=== PATIENT | female | born 1940 | race Caucasian/White ===

== ENCOUNTER → 2018-02-23 | Outpatient (CLI) | payer MEDICARE ==
[~2018-02-23] MED LIST: ACTOS; AMARYL; ASPIRIN; ASPIRIN81 M2 PO; BIOTIN1 M1 PO; CRESTOR40 MG PO; EYE DROPS OPHTHALMIC; GLUCOPHAGE1000 MG PO; HYDROCODON-ACE1 EAC7 PO; LOPRESSOR; PERCOCET 5-3251 EACH PO; PRINIVIL; SENNA-S TABLET1 EACH PO; TOPROL XL50 MG PO; TRAVATAN 0.004%5 ML OP; ZESTRIL2.5 MG PO; ZESTRIL40 MG PO; ZOFRAN ODT4 MG PO
== END ==
LOC: M.RAD 12:39
DX: Z12.31 Encounter for screening mammogram for malignant neoplasm of breast (principal); I10 Essential (primary) hypertension; E78.00 Pure hypercholesterolemia, unspecified; E11.9 Type 2 diabetes mellitus without complications

== ENCOUNTER 2018-04-11 15:02 | Observation (INO) | payer MEDICARE ==
[~2018-04-11] VITALS: Ht 162.6 cm; Wt 54.0 kg
[~2018-04-11 15:02] MED LIST changes: -BIOTIN1 M1 PO
[2018-04-11 15:08] VITALS: BP 105/61
[2018-04-11 15:23] LABS: ABSOLUTE BASOPHILS 0.2 thou/uL (0.0-0.2); ABSOLUTE EOSINOPHILS 0.1 thou/uL (0.0-0.7); ABSOLUTE LYMPHOCYTES 2.9 thou/uL (0.8-5.3); ABSOLUTE MONOCYTES 0.9 thou/uL (0.0-1.2); ABSOLUTE NEUTROPHILS 10.5 thou/uL (1.6-8.1); BASOPHILS 1.5 %; LYMPHOCYTES 19.6 %; MCH 31.3 pg (26.0-34.0); MCHC 33.4 g/dL (28.0-37.0); MCV 93.7 fL (80.0-100.0); MONOCYTES 6.1 %; NUCLEATED RBCS 0 /100WBC; PLATELET COUNT* 190 thou/uL (150-400); POLYS 71.8 %; WBC 14.6 thou/uL (4.0-11.0)
[2018-04-11] MEDS ORDERED: BIOTIN1 M1 PO (15:39)
[2018-04-11 15:42] LABS: ANION GAP 10 mmol/L (7-16); BUN 27 mg/dL (7-18); CALCIUM 9.3 mg/dL (8.5-10.1); CHLORIDE 95 mmol/L (98-107); CO2 27 mmol/L (21-32); CREATININE 1.2 mg/dL (0.6-1.3); GLUCOSE 268 mg/dL (70-99); POTASSIUM 3.5 mmol/L (3.5-5.1); SODIUM 132 mmol/L (136-145)
[2018-04-11 15:53] LABS: ALBUMIN 3.1 g/dL (3.4-5.0); ALKALINE PHOSPHATASE 92 U/L (46-116); LIPASE 199 U/L (73-393); MAGNESIUM 1.9 mg/dL (1.8-2.4); NT-PRO BRAIN NAT PEPTIDE 599 pg/mL (<300); SGOT 12 U/L (15-37); SGPT 22 U/L (30-65); TOTAL BILIRUBIN 1.7 mg/dL (<0.1-1.0); TOTAL PROTEIN 6.7 g/dL (6.4-8.2); TROPONIN-I LEVEL <0.06 ng/mL (<0.06)
[2018-04-11 18:12] VITALS: BP 114/63
[2018-04-11 18:52] VITALS: BP 143/59
--- NOTE | 2018-04-11 18:54 | NUR ---
VSS, ASSUMED CARE IN OF PT FROM ER, PT IS A&O4 ON RA, TRACINFG SR ON THE MONITOR, PT IS UP AD CARYL, ON 2L PRN, STATES SHE WAS HAVING CHEST PAIN AND DENIES ANY PAIN AT THIS TIME, FAMILY IS AT BEDSIDE, CALL LIGHT IN REACH, PT GOAL IS TO HAVE NO C/O CHEST PAIN, NEEDS A UA AND IS AN ACC CHECK, WILL FOLLOW WITH SHIFT REPORT,
[2018-04-11 19:46] VITALS: BP 100/53
[2018-04-11 23:17] LABS: URINE BILIRUBIN NEGATIVE (Negative); URINE BLOOD TRACE (Negative); URINE CLARITY CLEAR; URINE COLOR YELLOW; URINE GLUCOSE-RANDOM TRACE (Negative); URINE KETONES NEGATIVE (Negative); URINE LEUKOCYTES-REFLEX NEGATIVE (Negative); URINE NITRITE-REFLEX NEGATIVE (Negative); URINE PROTEIN 1+ (Negative); URINE SPECIFIC GRAVITY 1.015 (1.005-1.030); URINE UROBILINOGEN 0.2 E.U./dl (0.2-1.0)
[2018-04-12] VITALS: BP 154/71
[2018-04-12 04:00] VITALS: BP 133/67
--- NOTE | 2018-04-12 05:37 | NUR ---
ASSUMED CARE OF PATIENT FROM [facility] AT APPROXIMATELY 2300. PATIENT REMAINS STABLE THIS SHIFT. DENIES ANY PAIN AT THIS TIME. SYSTEMS MGR TRACING SR. PATIENT STATES HER MAIN CONCERN IS "BEING SO TIRED." PATIENT BELIEVES IT IS A VIRUS. PHYSICIAN'S NOTE DOES NOT CONCLUDE ANY SPECIFIC PLANS. HOURLY ROUNDING OBSERVED. CALL LIGHT WITHIN REACH
[2018-04-12 05:43] LABS: HEMATOCRIT 42.2 % (37.0-47.0); HEMOGLOBIN 14.2 gm/dL (12.0-15.0); MCH 31.3 pg (26.0-34.0); MCHC 33.6 g/dL (28.0-37.0); MCV 92.9 fL (80.0-100.0); MPV 8.8 fl. (7.2-11.1); RBC 4.54 mil/uL (4.20-5.00); RDW-CV 12.8 % (10.5-14.5); WBC 9.5 thou/uL (4.0-11.0)
[2018-04-12 06:07] LABS: CALCIUM 8.2 mg/dL (8.5-10.1); CREATININE 1.1 mg/dL (0.6-1.3); MAGNESIUM 1.6 mg/dL (1.8-2.4); POTASSIUM 3.4 mmol/L (3.5-5.1)
[2018-04-12 08:48] VITALS: BP 127/70
--- NOTE | 2018-04-12 14:12 | EKG ---
[place] [address] ELECTROCARDIOGRAM REPORT Name: TETEFROYLAN V Room: [address]R.#: [id number] Admission: 04/11/18 Attend Phys: Shelby Ca MD Discharge: Date of : 40 Report #: [id number] THIS REPORT FOR: //name// [facility] ED Test Date: 2018-04-11 Test Time: 15:09:04 Pat Name: FROYLAN EPSTEIN Department: Room: [facility] Gender: F Finisher Hand: Norma LUNA : 1940 Requested By: Anoop Mendez Order Number: [id number] MD: Deyvi Larsen Measurements Intervals [place] Rate: 82 P: 64 MI: 160 QRS: 14 QRSD: 86 T: -25 QT: 370 QTc: 432 Interpretive Statements Sinus rhythm Nonspecific repol abnormality, diffuse leads Compared to ECG 01/29/2017 12:20:35 st depression more prominent Electronically Signed On 04-12-2018 14:12:16 CDT by Deyvi Larsen [email or web address] <ELECTRONICALLY SIGNED> By: Deyvi Larsen MD, [facility] 04/12/18 1412 1509 [id number] Deyvi Larsen MD, [facility] /EPI
[2018-04-12 15:27] VITALS: BP 153/67
[2018-04-12 15:28] VITALS: BP 127/70
--- NOTE | 2018-04-12 16:01 | NUR ---
PT GIVEN DISCHARGE INSTRUCTIONS AND VERBALIZES UNDERSTANDING. PT HAS NO CONCERNS. WAITING FOR TO ARRIVE TO DC HOME.
== END 2018-04-12 16:00 | disposition home or self-care (01) ==
LOC: M.ERS 15:02 → M.TBA-ER 16:13 → M.2W 16:13
PROVIDERS: Emergency Medicine Emergency Medical Services; ADMIT Internal Medicine
DX: R07.9 Chest pain, unspecified (principal); R10.30 Lower abdominal pain, unspecified; I25.10 Atherosclerotic heart disease of native coronary artery without angina pectoris; I10 Essential (primary) hypertension; E11.9 Type 2 diabetes mellitus without complications; E78.00 Pure hypercholesterolemia, unspecified; F17.210 Nicotine dependence, cigarettes, uncomplicated; Z95.5 Presence of coronary angioplasty implant and graft

== ENCOUNTER → 2019-04-26 | Outpatient (CLI) | payer MEDICARE ==
[~2019-04-26] MED LIST changes: +BIOTIN1 M1 PO
== END ==
LOC: M.RAD 09:50
DX: Z12.31 Encounter for screening mammogram for malignant neoplasm of breast (principal)

== ENCOUNTER → 2021-03-11 | Outpatient (CLI) | payer MEDICARE ==
[2021-03-11 12:38] LABS: CREATININE 0.8 mg/dL (0.6-1.3)
[2021-03-11 19:16] LABS: CALCIUM 8.9 mg/dL (8.5-10.1); POTASSIUM 4.7 mmol/L (3.5-5.1)
== END ==
LOC: M.LAB 12:00 → M.CT 13:00
PROVIDERS: ATTEND Surgery Vascular Surgery
DX: I70.213 Atherosclerosis of native arteries of extremities with intermittent claudication, bilateral legs (principal); I71.2 Thoracic aortic aneurysm, without rupture; K57.30 Diverticulosis of large intestine without perforation or abscess without bleeding

== ENCOUNTER → 2021-08-28 | Outpatient (CLI) | payer MEDICARE ==
[2021-08-28 08:54] LABS: CREATININE 0.9 mg/dL (0.6-1.3)
== END ==
LOC: M.LAB 07:59 → M.CT 09:00
PROVIDERS: ATTEND Surgery Vascular Surgery
DX: I71.4 Abdominal aortic aneurysm, without rupture (principal); I70.213 Atherosclerosis of native arteries of extremities with intermittent claudication, bilateral legs; J98.4 Other disorders of lung; M25.78 Osteophyte, vertebrae